=== PATIENT | male | born 1995 | race Caucasian/White ===

== ENCOUNTER → 2020-10-18 | Outpatient (CLI) | payer OTHER | LOC: M LABSMTC 10:23 | PROVIDERS: ATTEND Anesthesiology | DX: Z01.812 Encounter for preprocedural laboratory examination (principal); Z20.822 Contact with and (suspected) exposure to COVID-19 ==

== ENCOUNTER 2020-10-23 12:01 | Day surgery (SDC) | payer OTHER ==
[~2020-10-23] VITALS: Ht 182.9 cm; Wt 123.9 kg
[~2020-10-23 12:01] MED LIST: EMLA CREAM 5GM TUBE (LIDOCAINE/PRILOCAINE) TOP PRN; LIDOCAINE 1% MDV 20ML VIAL SQ PRN; LR 1,000 ML IV ONE; ceFAZolin SOD 1 GM in D5W MINI-BAG PLUS 50 ML IV ONE
[2020-10-23] MEDS ORDERED: BUPIVACAINE/EPIN 0.25% 30 ML VIAL As Ordered ONE (13:18)
[2020-10-23] MEDS ORDERED: LIDOCAINE 1% SDV 30ML VIAL As Ordered ONE (13:18)
[2020-10-23] MEDS ORDERED: propofoL 200 MG/20 ML VIAL As Ordered ONE ×2 (14:04→14:11)
[2020-10-23] MEDS ORDERED: MIDAZOLAM INJ 2MG/2ML VIAL (J2250 PER 1MG) As Ordered ONE (14:04)
[2020-10-23] MEDS ORDERED: fentaNYL 100 MCG/2 ML INJECTION (J3010) As Ordered ONE (14:04)
[2020-10-23] MEDS ORDERED: fentaNYL 100 MCG/2 ML INJECTION (J3010) IV PRN (15:05)
[2020-10-23] MEDS ORDERED: PERCOCET 5MG/325MG TAB PO PRN (15:05)
[2020-10-23] MEDS ORDERED: LR 1,000 ML IV SCH (15:05)
[2020-10-23] MEDS ORDERED: NS 1,000 ML IV SCH (15:05)
[2020-10-23] MEDS ORDERED: ONDANSETRON 4MG/2ML VIAL IV PRN (15:05)
[2020-10-23] MEDS ORDERED: METOCLOPRAMIDE INJ 10MG/2ML VIAL (J2765 PER 1) IV PRN (15:05)
[2020-10-23 15:10] VITALS: BP 120/58
[2020-10-23] MEDS ORDERED: KETOROLAC 30 MG/ML 1ML VIAL IV SCH (16:00)
--- NOTE | 2020-11-16 21:21 | RO ---
OPERATIVE NOTE DATE OF OPERATION: 10/23/2020 PREOPERATIVE DIAGNOSIS: Left neck mass. POSTOPERATIVE DIAGNOSIS: Sebaceous cyst. PROCEDURES: Excision of left neck lesion (5 cm). SURGEON: Karan Márquez M.D. ANESTHESIA: IV sedation plus local. ESTIMATED BLOOD LOSS: Minimal. FLUIDS: Crystalloid. BRIEF PROCEDURE SUMMARY: The patient was brought to the operating room and was given IV sedation and placed in the supine position with the head tilted to the right. He was prepped and draped in the usual sterile fashion. Next, local was placed in the skin and subcutaneous tissue surrounding this lesion. Once I was able to infiltrate this area, it was obvious that this had a small dermal pit in the middle of this, and thus felt that it was much more likely to be a sebaceous cyst. A small elliptical incision was made over the skin in this area. A skin knife and electrocautery, as well as blunt and sharp dissection, were used to remove the entire cyst in its entirety. Staying on the cyst wall, I was able to remove this nicely. I then brought the dermis together with 3-0 Vicryl and 4-0 Vicryl subcuticular was used to approximate the skin. Steri-Strips and a dry sterile dressing were applied. The patient was awakened from his sedation and was brought to the recovery room awake, alert, and hemodynamically stable. Sponge and needle counts were correct x2.
== END 2020-10-23 15:35 | disposition home or self-care (01) ==
LOC: M SDC 12:01
PROVIDERS: ATTEND Surgery
DX: L72.0 Epidermal cyst (principal)
CPT/HCPCS: 11426; 88304; J0690; J2250; J3010